=== PATIENT | male | born 2000 | race Caucasian/White ===

== ENCOUNTER 2019-12-03 16:41 | Outpatient (REF) | payer BC, SELFPAY ==
[2019-12-03 18:57] LABS: Anion Gap 8.9 mmol/L (3-11); BUN 9 mg/dL (7-18); CO2 30.1 mmol/L (21.0-32.0); CREATININE 0.79 mg/dL (0.70-1.30); Calcium 9.6 mg/dL (8.5-10.1); Chloride 102 mmol/L (98-107); Glucose 194 mg/dL (74-106); Potassium 4.1 mmol/L (3.5-5.1); Sodium 141 mmol/L (136-145); TSH (W/Ref FT4) 1.66 uIU/mL (0.36-3.74)
[2019-12-03 19:12] LABS: Vitamin D 25 Total 41.1 ng/ml (30-100)
== END 2019-12-03 17:01 ==
LOC: NCHCN 16:41
PROVIDERS: PCP Family Medicine; Visit Provider Family Medicine
DX: E03.9 Hypothyroidism, unspecified (principal); E10.9 Type 1 diabetes mellitus without complications; E55.9 Vitamin D deficiency, unspecified
CPT/HCPCS: 80048; 82306; 84443

== ENCOUNTER 2020-10-30 08:16 | Outpatient (REF) | payer OTHER, SELFPAY ==
[2020-10-30 11:37] LABS: COMMENT (LAB VIEW ONLY) 51.73 mg/dL; Microalb ug/mg Crea 4.1 ug/mg Cr
[2020-10-30 12:11] LABS: Hemoglobin A1C 7.4 % (<5.7)
[2020-10-30 12:44] LABS: Anion Gap 7.7 mmol/L (3-11); BUN 15 mg/dL (7-18); CO2 30.3 mmol/L (21.0-32.0); CREATININE 0.9 mg/dL (0.70-1.30); Calcium 9.5 mg/dL (8.5-10.1); Chloride 104 mmol/L (98-107); Glucose 106 mg/dL (74-106); Potassium 3.9 mmol/L (3.5-5.1); Sodium 142 mmol/L (136-145); TSH 3.75 uIU/mL (0.36-3.74)
[2020-10-31 05:02] LABS: Vitamin D 25 Total 23.6 ng/mL (30-100)
== END 2020-10-30 08:17 | disposition home or self-care (01) ==
LOC: LBO 08:16
PROVIDERS: PCP Family Medicine; Visit Provider Internal Medicine Endocrinology, Diabetes & Metabolism
DX: E10.9 Type 1 diabetes mellitus without complications (principal); E03.8 Other specified hypothyroidism; E55.9 Vitamin D deficiency, unspecified
CPT/HCPCS: 36415; 80048; 82306; 82043; 82570; 83036; 84443

== ENCOUNTER 2020-11-14 11:27 | Outpatient (REF) | payer OTHER, SELFPAY ==
[2020-11-14 15:32] LABS: Calculated LDL 95 mg/dL (<100); Cholesterol 141 mg/dL (<200); HDL Cholesterol 39 mg/dL (40-60); Triglyceride 35 mg/dL (<150)
== END 2020-11-14 11:28 | disposition home or self-care (01) ==
LOC: LBO 11:27
PROVIDERS: PCP Family Medicine; Visit Provider Internal Medicine Endocrinology, Diabetes & Metabolism
DX: E03.9 Hypothyroidism, unspecified (principal); E55.9 Vitamin D deficiency, unspecified; E10.9 Type 1 diabetes mellitus without complications
CPT/HCPCS: 36415; 80061

== ENCOUNTER 2021-03-29 16:04 | Outpatient (REF) | payer OTHER, SELFPAY ==
[2021-03-30 22:41] LABS: COVID-19 RT-PCR UVMMC Result Negative (Negative)
== END 2021-03-29 16:05 | disposition home or self-care (01) ==
LOC: LBN 16:04
PROVIDERS: PCP Family Medicine; Visit Provider Physician Assistant Medical
DX: Z20.822 Contact with and (suspected) exposure to COVID-19 (principal)
CPT/HCPCS: U0003

== ENCOUNTER 2021-06-08 18:31 | Outpatient (CLI) | payer OTHER, SELFPAY ==
[2021-06-08 16:51] LABS: Hemoglobin A1C 7.5 % (<5.7)
[2021-06-08 18:03] LABS: TSH 0.86 uIU/mL (0.36-3.74)
[2021-06-08 18:15] LABS: Vitamin D 25 Total 24.6 ng/mL (30-100)
== END 2021-06-08 18:32 | disposition home or self-care (01) ==
LOC: LBO 18:33
PROVIDERS: PCP Family Medicine; Visit Provider Internal Medicine Endocrinology, Diabetes & Metabolism
DX: E10.9 Type 1 diabetes mellitus without complications (principal); E03.9 Hypothyroidism, unspecified; E55.9 Vitamin D deficiency, unspecified
CPT/HCPCS: 82306; 83036; 84443

== ENCOUNTER 2022-02-23 13:24 | Outpatient (REF) | payer OTHER, SELFPAY ==
[2022-02-23 13:27] LABS: Hemoglobin A1C 6.4 % (<5.7)
[2022-02-23 13:44] LABS: COMMENT (LAB VIEW ONLY) 36.85 mg/dL
[2022-02-23 13:52] LABS: ALT 12 U/L (16-63); AST 13 U/L (15-37); Albumin 4.1 g/dL (3.4-5.0); Alkaline Phosphatase 57 U/L (46-116); Anion Gap 5.3 mmol/L (3-11); BUN 14 mg/dL (7-18); Bilirubin, Total 1.3 mg/dL (0.2-1.0); CO2 29.7 mmol/L (21.0-32.0); CREATININE 0.8 mg/dL (0.70-1.30); Calcium 9.1 mg/dL (8.5-10.1); Calculated LDL 89 mg/dL (<100); Chloride 103 mmol/L (98-107); Cholesterol 139 mg/dL (<200); Estimated GFR 127.53 (mL/min/1.73m2); Glucose 106 mg/dL (74-106); HDL Cholesterol 45 mg/dL (40-60); Potassium 3.9 mmol/L (3.5-5.1); Sodium 138 mmol/L (136-145); TSH 1.38 uIU/mL (0.36-3.74); Total Protein 7.8 g/dL (6.4-8.2); Triglyceride 28 mg/dL (<150)
[2022-02-23 17:16] LABS: Vitamin D 25 Total 35.3 ng/mL (30-100)
== END 2022-02-23 13:25 | disposition home or self-care (01) ==
LOC: LBO 13:24
PROVIDERS: PCP Family Medicine; Visit Provider Internal Medicine Endocrinology, Diabetes & Metabolism
DX: E10.9 Type 1 diabetes mellitus without complications (principal); E03.9 Hypothyroidism, unspecified; E55.9 Vitamin D deficiency, unspecified
CPT/HCPCS: 36415; 80053; 80061; 82306; 82043; 82570; 83036; 84443

== ENCOUNTER 2023-01-02 15:04 | Outpatient (REF) | payer OTHER, SELFPAY ==
[2023-01-02 15:10] LABS: Source Nasal/Nares
[2023-01-02 15:11] LABS: COVID-19 PCR Negative (Negative)
== END 2023-01-02 15:05 | disposition home or self-care (01) ==
LOC: LBN 15:04
PROVIDERS: PCP Family Medicine; Visit Provider Nurse Practitioner Family
DX: Z20.822 Contact with and (suspected) exposure to COVID-19 (principal)
CPT/HCPCS: 87635

== ENCOUNTER 2023-02-21 12:37 | Outpatient (CLI) | payer OTHER, SELFPAY ==
[2023-02-21 11:06] LABS: Anion Gap 5.9 mmol/L (3-11); BUN 15 mg/dL (7-18); CO2 29.1 mmol/L (21.0-32.0); CREATININE 0.9 mg/dL (0.70-1.30); Calculated LDL 97 mg/dL (<100); Chloride 105 mmol/L (98-107); Cholesterol 147 mg/dL (<200); Estimated GFR 122.31 (mL/min/1.73m2); Glucose 131 mg/dL (74-106); HDL Cholesterol 43 mg/dL (40-60); Potassium 4.4 mmol/L (3.5-5.1); Sodium 140 mmol/L (136-145); Triglyceride 37 mg/dL (<150)
[2023-02-21 11:27] LABS: Vitamin D 25 Total 21.7 ng/mL (30-100)
[2023-02-21 11:34] LABS: COMMENT (LAB VIEW ONLY) 152.92 mg/dL; Microalb ug/mg Crea 6.1 ug/mg Cr
== END 2023-02-21 12:38 | disposition home or self-care (01) ==
LOC: LBO 12:37
PROVIDERS: PCP Family Medicine; Visit Provider Internal Medicine Endocrinology, Diabetes & Metabolism
DX: E10.9 Type 1 diabetes mellitus without complications (principal); E55.9 Vitamin D deficiency, unspecified; E03.9 Hypothyroidism, unspecified
CPT/HCPCS: 36415; 80048; 80061; 82306; 82043; 82570; 83036

== ENCOUNTER 2024-01-09 10:41 | Outpatient (CLI) | payer OTHER, SELFPAY ==
[2024-01-10 11:35] LABS: Hemoglobin A1C 7.3 % (<5.7)
[2024-01-10 11:57] LABS: Vitamin D 25 Total 57.1 ng/mL (30-100)
== END 2024-01-09 10:42 | disposition home or self-care (01) ==
LOC: LBO 10:44
PROVIDERS: PCP Family Medicine; Visit Provider Internal Medicine Endocrinology, Diabetes & Metabolism
DX: E55.9 Vitamin D deficiency, unspecified (principal); E10.65 Type 1 diabetes mellitus with hyperglycemia; E06.3 Autoimmune thyroiditis
CPT/HCPCS: 36415; 82306; 83036; 84443

== ENCOUNTER 2024-01-10 13:36 | Outpatient (REF) | payer OTHER, SELFPAY ==
[2024-01-10 13:19] LABS: COMMENT (LAB VIEW ONLY) 52.12 mg/dL; Microalb ug/mg Crea 7.7 ug/mg Cr
== END 2024-01-10 13:37 | disposition home or self-care (01) ==
LOC: LBO 13:36
PROVIDERS: PCP Family Medicine; Visit Provider Internal Medicine Endocrinology, Diabetes & Metabolism
DX: E55.9 Vitamin D deficiency, unspecified (principal); E10.65 Type 1 diabetes mellitus with hyperglycemia; E06.3 Autoimmune thyroiditis
CPT/HCPCS: 82043; 82570

== ENCOUNTER 2024-10-05 09:28 | Emergency (ER) | payer OTHER, SELFPAY ==
[2024-10-05 09:29] VITALS: BP 158/99; PULSE 90; RESP 16; TEMP 36.6; O2SAT 99
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
[2024-10-05 10:56] VITALS: BP 123/72; PULSE 80; RESP 16; O2SAT 99
[2024-10-05] MEDS: Acetaminophen 500 MG TAB 1000 MG PO (10:59)
== END 2024-10-05 10:56 | disposition home or self-care (01) ==
PROVIDERS: Emergency Provider Physician Assistant; PCP Student in an Organized Health Care Education/Training Program
DX: S76.012A Strain of muscle, fascia and tendon of left hip, initial encounter (principal); X58.XXXA Exposure to other specified factors, initial encounter
CPT/HCPCS: 99283; 73502

== ENCOUNTER 2024-10-21 09:56 | Outpatient (CLI) | payer OTHER, SELFPAY ==
[2024-10-21 11:23] LABS: Hemoglobin A1C 7.2 % (<5.7)
[2024-10-21 11:48] LABS: TSH 1.78 uIU/mL (0.36-3.74); Vitamin D 25 Total 32 ng/mL (30-100)
== END 2024-10-21 09:57 | disposition home or self-care (01) ==
LOC: LBO 09:56
PROVIDERS: PCP Student in an Organized Health Care Education/Training Program; Visit Provider Internal Medicine Endocrinology, Diabetes & Metabolism
DX: E55.9 Vitamin D deficiency, unspecified (principal); E10.65 Type 1 diabetes mellitus with hyperglycemia; E06.3 Autoimmune thyroiditis
CPT/HCPCS: 36415; 82306; 83036; 84443